=== PATIENT | male | born 1975 | race Caucasian/White ===

== ENCOUNTER 2016-08-17 09:44 | Day surgery (SDC) | payer OTHER ==
[2016-08-16 11:45] VITALS: BMI 25.8
[2016-08-17] MEDS ORDERED: oxyCODONE HCL 5 MG TABLET PO PRN (10:20)
[2016-08-17] MEDS ORDERED: ONDANSETRON 4 MG/2 ML VIAL IVPUSH PRN (10:23)
[2016-08-17] MEDS ORDERED: LACTATED RINGERS SOLUTION 1,000 ML IV SCH (10:30)
[2016-08-17] MEDS ORDERED: PROPOFOL 20 ML ONE (10:30)
[2016-08-17] MEDS ORDERED: MIDAZOLAM HCL 2 MG/2 ML SINGLE DOSE VIAL ONE (10:48)
[2016-08-17] MEDS ORDERED: LIDOCAINE 1%-EPI 1:100,000 30 ML MDV IJ ONE (11:53)
[2016-08-17] MEDS ORDERED: HYDROmorphone HCL CARPU-JECT 1 MG/1 ML DISP.SYRIN ONE (15:03)
[2016-08-17] MEDS: HYDROmorphone HCL CARPU-JECT 1 MG/1 ML DISP.SYRIN IVPUSH PRN ×2 (15:05→15:20)
[2016-08-17] MEDS ORDERED: ONDANSETRON 4 MG/2 ML VIAL ONE (15:30)
[2016-08-17 16:18] VITALS: TEMP 98.2
[2016-08-17] MEDS ORDERED: oxyCODONE HCL 5 MG TABLET ONE (16:26)
[2016-08-17 16:33] VITALS: PULSE 74
[2016-08-17 17:20] VITALS: BP 153/74
--- NOTE | 2016-08-18 16:00 | OP ---
DATE OF OPERATION: 08/17/2016 SURGEON: Candice Santiago MD SECURITY FIELD SUPERVISOR: None. ANESTHESIA: General. PREOPERATIVE DIAGNOSES: Right distal radius fracture, right scapholunate ligament tear, and right scaphoid fracture. POSTOPERATIVE DIAGNOSES: Right distal radius fracture, right scapholunate ligament tear, and right scaphoid fracture. PROCEDURES PERFORMED: 1. Open reduction and internal fixation of right distal radius fracture (intra-articular, 2 parts). 2. Scapholunate ligament repair with dorsal intercarpal ligament augmentation. 3. Closed treatment of right scaphoid fracture. 4. Resection of posterior interosseous nerve. INDICATIONS FOR PROCEDURE: Patient is known to have the above injuries from consultation. Risks, benefits, and alternatives were discussed with the patient , and consent was obtained to proceed. CONSENT PRIOR TO THE PROCEDURE: The patient had ample time to ask all his questions as did his , and these were answered to their satisfaction. Risks discussed included, but were not limited to, infection, bleeding, anesthesia risks, risks of poor scarring, risk of wrist stiffness or pain requiring therapy or further surgery, risk of attenuation or re-rupture of the scapholunate ligament, risk of nonunion or malunion of both fractures, risk of need for removal of hardware if any is placed, and risk of damage to adjacent nerves, vessels, tendons, and other structures. Understanding these risks, the patient gave consent to proceed with the procedure. DESCRIPTION OF PROCEDURE: Patient was taken to the operating room, placed supine on the operating room table by the operating room team. With a well-padded upper arm tourniquet placed, the patient's right arm was prepped and draped in a standard sterile fashion. It was exsanguinated from distal to proximal with an Esmarch bandage, and then, after standard operative timeout, the tourniquet was inflated to 250 mmHg. A dorsal wrist incision was made, and a standard dorsal wrist approach was performed. The extensor pollicis longus was visualized upon entering the third dorsal compartment and was externalized. The extensor retinaculum was then opened, and the posterior interosseous nerve was identified. A 2-cm segment of posterior interosseous nerve was identified and cut back with care taken to cauterize the proximal edge after squeezing it repeatedly with an Adson forceps in standard nerve transection fashion. This was discarded. Attention was then turned to entering the wrist capsule. A ligament-sparing wrist capsule approach was performed, and the capsule reflected. The dorsal intercarpal ligament was seen to be intact. The scapholunate ligament was inspected, and it was seen to have ruptured from the surface of the scaphoid. The scaphoid was inspected and the cartilage surface in the area of question was seen to be pristine and no displacement of the scaphoid was noted. The distal radius was inspected, and the dorsal lip fracture was seen to be extending intra-articular with mild displacement of the joint surface seen. Attention was turned to treatment of these injuries. 0.062 K-wires were placed in the scaphoid and the lunate in standard fashion as joysticks, and these were rotated into position. Fluoroscopy was then brought in, and the mini C-arm underwent failure during the case and needed to be replaced. Radiology was called, and a standard C-arm was brought in. C-arm was then used to confirm pentecostal of the scapholunate relationship, and then, 0.045 K-wires were placed in standard fashion with 2 scapholunate pins placed and 1 scaphocapitate pin placed. The joysticks were then removed, and a JuggerKnot anchor was then placed in the scaphoid just dorsal to the footprint of the ligament. The scapholunate ligament was then repaired after a curette was used to roughen the surface of the attachment of the scapholunate ligament. A second JuggerKnot was then placed into the lunate. The JuggerKnot in the lunate was a 2-0/1 mm, and the one into the scaphoid was a 3-0/1 mm. The dorsal intercarpal ligament was then brought down, having been detached radially and was sutured onto the dorsal surface of the lunate as well as using the scaphoid anchor. The wrist capsule was then brought over, and the anchors were used to grab this as well. Then, they were cut. The capsule was then repaired with 4-0 PDS sutures. Attention was then turned to the distal radius fracture. A K-wire was used to create a bone tunnel, and 4-0 PDS sutures were used in 2 places to grab through the dorsal piece of the radius and tie it down, performing radiolucent fixation. The fracture was felt to have greater stability. The intra-articular distal radius fracture was thus treated in open fashion. The extensor retinaculum was then repaired with 4-0 PDS suture, and the wound closed with 4-0 Vicryl suture, followed by 4-0 nylon horizontal mattress sutures. Sterile dressings were then applied, and then, a thumb spica splint was applied, beginning nonoperative fracture care for the scaphoid fracture as no fixation was needed to be applied. The tourniquet was let down just prior to skin closure at 132 minutes , and precision use of bipolar cautery was used to achieve hemostasis. Sterile dressings were applied as was the thumb spica brace as above. At the end of the case, the count was correct x2. The patient tolerated the procedure well, was taken to the postanesthesia care unit in stable condition. DISPOSITION: To recovery. COMPLICATIONS: None. ESTIMATED BLOOD LOSS: Minimal. SPECIMENS: None. IMPLANTS: 0.045 K-wires x3 as above. Postoperative examination showed the patient resting comfortably in the postanesthesia care unit. Sensation was intact to the tip of each finger on the radial and ulnar sides. The patient was able to flex and extend his fingers fully. Operative findings and discharge instructions were reinforced with the patient and the patient's . CANDICE SANTIAGO M.D. [id number] MTDD
== END 2016-08-17 17:21 | disposition home or self-care (01) ==
LOC: FASU 09:44
PROVIDERS: ATTEND Plastic Surgery
PROC: 0PSM34Z Reposition Right Carpal with Internal Fixation Device, Percutaneous Approach (ICD-10-PCS; 2016-08-17)
PROC: 01D Peripheral Nervous System, Extraction (ICD-10-PCS; 2016-08-17)
PROC: 0RQN0ZZ Repair Right Wrist Joint, Open Approach (ICD-10-PCS; 2016-08-17)
PROC: 0PSH04Z Reposition Right Radius with Internal Fixation Device, Open Approach (ICD-10-PCS; principal; 2016-08-17 11:45)
DX: S52.501A Unspecified fracture of the lower end of right radius, initial encounter for closed fracture (principal); S63.511A Sprain of carpal joint of right wrist, initial encounter; S62.001A Unspecified fracture of navicular [scaphoid] bone of right wrist, initial encounter for closed fracture; X58.XXXA Exposure to other specified factors, initial encounter; Y93.9 Activity, unspecified; Y92.9 Unspecified place or not applicable
CPT/HCPCS: 73110-TC-RT; 76001-TC